=== PATIENT | female | born 1975 | race African-American/Black ===

== ENCOUNTER 2023-08-01 11:26 | Day surgery (SDC) | payer OTHER ==
[2023-07-26 12:24] VITALS: BMI 34.3
[2023-08-01 11:46] VITALS: RESP 20
[2023-08-01 13:20] VITALS: TEMP 97.9
[2023-08-01 13:27] VITALS: BP 118/65; PULSE 96
== END 2023-08-01 13:00 | disposition home or self-care (01) ==
LOC: FASU-ENDO 11:26
PROVIDERS: ATTEND Internal Medicine Gastroenterology
PROC: 0DJD8ZZ Inspection of Lower Intestinal Tract, Via Natural or Artificial Opening Endoscopic (ICD-10-PCS; principal; 2023-08-01 12:00)
DX: Z12.11 Encounter for screening for malignant neoplasm of colon (principal); K64.1 Second degree hemorrhoids
CPT/HCPCS: 81025